=== PATIENT | female | born 1930 | race Caucasian/White ===

== ENCOUNTER 2022-06-23 07:17 | Inpatient (IN) | payer OTHER, BC ==
[2022-06-23] MEDS ORDERED: CEFTRIAXONE 1000 MG/VIAL ONE (08:03)
[2022-06-23] MEDS ORDERED: NA CHLORIDE 0.9% 1,000 ML ONE (08:03)
[2022-06-23 08:28] LABS: Absolute Lymphocytes (CBC) 1.4 K/uL (0.7-4.9); Lymphocytes % 26.6 % (15.3-44.8); MCV 84.7 fL (80-100); MPV 9.5 fL (7.6-11.3); RBC Red Blood Cell Count 3.78 M/uL (3.86-4.86)
[2022-06-23 08:36] LABS: Protime INR 1.18
[2022-06-23 08:48] LABS: Albumin 3.5 g/dL (3.4-5.0); Bilirubin Direct 0.2 mg/dL (0-0.2); Bilirubin Indirect, Calculated 0.4 mg/dL (0.2-0.8); Bilirubin Total 0.6 mg/dL (0.2-1.0); Magnesium 2.1 mg/dL (1.6-2.4); Potassium 3.3 mEq/L (3.5-5.1); Protein, Total 7.9 g/dL (6.4-8.2); Troponin High Sensitivity 14.3 pg/mL (<58.9)
--- NOTE | 2022-06-23 08:48 | RAD REPORT ---
EXAM DESCRIPTION: Lauren Single View06/23/2022 7:54 am CLINICAL HISTORY: Congestion;Dyspnea COMPARISON: No comparisons TECHNIQUE: Portable AP view of the chest. FINDINGS: Central interstitial prominence and vascular engorgement. No focal consolidation. No pneum othorax or effusion. Heart is not enlarged. Endovascular graft seen along the aortic arch with tortuo sity. Prominence of the aortic knuckle, of uncertain chronicity given absence of comparison exams. IMPRESSION: Prominence of the aortic knuckle, suggesting presence of an aneurysm, of uncertain chron icity in the absence of comparison exams. An aortic endovascular graft is present. Central congestive changes without evidence of focal airspace disease.
[2022-06-23] MEDS ORDERED: FUROSEMIDE 20 MG/ 2ML VIAL ONE ×2 (08:55→09:51)
[2022-06-23] MEDS ORDERED: NA CHLORIDE 0.9% 250 ML ONE (08:56)
[2022-06-23] MEDS ORDERED: AZITHROMYCIN 500 MG INJ IVPB ONE (08:56)
--- NOTE | 2022-06-23 09:15 | ER ---
Nurse's Notes [facility] Name: Latricia Chu Age: 89 yrs Sex: Female : 1930 Arrival Date: 06/23/2022 Time: 07:17 Bed 5 Private MD: Diagnosis: Dyspnea;Essential (primary) hypertension;Diastolic (congestive) heart failure;Hypoxemia;Hypokalemia Presentation: 06/23 07:38 Chief complaint: Persistent cough and SOB x 3 weeks, worse over last few days. hb Coronavirus screen: Client presents with at least one sign or symptom that may indicate coronavirus-19. Provider contacted for isolation considerations. Ebola Screen: No symptoms or risks identified at this time. Initial Sepsis Screen: Does the patient meet any 2 criteria? HR > 90 bpm. No. Patient's initial sepsis screen is negative. Does the patient have a suspected source of infection? No. Patient's initial sepsis screen is negative. Risk Assessment: Do you want to hurt yourself or someone else? Patient reports no desire to harm self or others. Onset of symptoms was June 09, 2022. 07:38 Method Of Arrival: Ambulatory 07:38 Acuity: FATMATA 3 Triage Assessment: 07:39 General: Appears in no apparent distress. Behavior is calm, cooperative. Pain: Denies hb pain. EENT: No signs and/or symptoms were reported regarding the EENT system. Neuro: Level of Consciousness is awake, alert, obeys commands, Oriented to person, place, time, situation. Cardiovascular: Patient's skin is warm and dry. Respiratory: Respiratory effort is even, mildly labored Respiratory pattern is regular, symmetrical. GI: No signs and/or symptoms were reported involving the gastrointestinal system. : No signs and/or symptoms were reported regarding the genitourinary system. Derm: Skin is pink, warm \T\ dry. Musculoskeletal: No signs and/or symptoms reported regarding the musculoskeletal system. Historical: - Allergies: 07:39 Codeine; hb - Home Meds: 08:00 metoprolol tartrate 25 mg Oral tablet 0.5 tabs 2 times per day [Active]; losartan 25 mg hb oral tablet once [Active]; potassium chloride 10 mEq Oral tablet, extended release daily [Active]; aspirin 81 mg Oral tablet, delayed release (enteric coated) daily [Active]; furosemide 40 mg Oral tablet daily [Active]; pravastatin 20 mg oral tablet every day at bedtime [Active]; colchicine 0.6 mg Oral capsule daily [Active]; - PMHx: 07:39 Congestive heart failure; hb 08:00 Gout; Hypertension; hb - Immunization history:: Adult Immunizations up to date. - Social history:: Smoking status: Patient denies any tobacco usage or history of. - Family history:: not pertinent. Screenin:41 [facility] ED Fall Risk Assessment (Adult) Score/Fall Risk Level 0 - 2 = Low Risk hb Oriented to surroundings, Maintained a safe environment, Educated pt \T\ family on fall prevention, incl call for assistance when getting out of bed. Abuse screen: Denies threats or abuse. Denies injuries from another. Nutritional screening: No deficits noted. Tuberculosis screening: No symptoms or risk factors identified. Assessment: 07:41 General: See triage assessment. hb 08:57 Reassessment: No changes from previously documented assessment. Patient and/or family hb updated on plan of care and expected duration. Pain level reassessed. Patient is alert, oriented x 3, equal unlabored respirations, skin warm/dry/pink. 09:09 Reassessment: received report from RN. Cindi mb9 09:50 Reassessment: pt actively vomiting. Dale GARCIA, notified. New orders at this time. hb 10:32 General:. Neuro: Level of Consciousness is awake, alert, obeys commands, Oriented to mb9 person, place, time, situation, Appropriate for age. Cardiovascular: Rhythm is sinus tachycardia. Respiratory: Airway is patent Respiratory effort is even, unlabored, Respiratory pattern is regular, symmetrical. GI: Reports nausea. Derm: Skin is pink, warm \T\ dry. Musculoskeletal: Range of motion: intact in all extremities. 12:24 Reassessment: No changes from previously documented assessment. Patient and/or family mb9 updated on plan of care and expected duration. Pain level reassessed. Patient is alert, oriented x 3, equal unlabored respirations, skin warm/dry/pink. 12:24 Reassessment: report called to LINDSAY Marino. mb9 Vital Signs: 07:38 BP 128 / 69; Pulse 100; Resp 18; Temp 98.6(O); Pulse Ox 94% on R/A; Weight 55.79 kg; hb Height 5 ft. 3 in. ; Pain 0/10; 08:46 BP 114 / 62; Pulse 98; Resp 18; Pulse Ox 94% on R/A; hb 09:20 Pulse 105; Resp 28; Pulse Ox 97% on R/A; mb9 09:59 BP 114 / 73; Pulse 110; Resp 24; Pulse Ox 95% on R/A; hb 07:38 Body Mass Index 21.79 (55.79 kg, 160.02 cm) hb 07:38 Pain Scale: Adult hb ED Course: 07:18 Patient arrived in ED. rg4 07:22 Kishore Hunter MD is Attending Physician. mark 07:39 Triage completed. hb 07:41 Arm band placed on. hb 07:41 Patient has correct armband on for positive identification. hb 07:41 Client placed on continuous cardiac and pulse oximetry monitoring. NIBP monitoring hb applied. 07:50 Placed in gown. Bed in low position. Call light in reach. Side rails up X2. Adult w/ mm9 patient. Warm blanket given. cardiac monitor on. Pulse ox on. NIBP on. 07:51 EKG done, by ED staff, reviewed by Kishore Hunter MD. mm9 07:56 XRAY Chest (1 view) In Process Unspecified. EDMS 08:08 Cindi Crystal, RN is Primary Nurse. hb 08:15 Initial lab(s) drawn, by wa, sent to lab. First set of blood cultures drawn by wa, mm9 COVID swab sent to lab. Flu and/or RSV swab sent to lab. 08:22 Flu Sent. mm9 08:22 Lactate w/ 2H reflex if indic. Sent. mm9 08:22 Blood Culture Adult (2) Sent. mm9 08:22 Basic Metabolic Panel Sent. mm9 08:22 CBC with Diff Sent. mm9 08:22 LFT's Sent. mm9 08:22 Magnesium Sent. mm9 08:22 NT PRO-BNP Sent. mm9 08:22 PT-INR Sent. mm9 08:22 Troponin HS Sent. mm9 08:22 Inserted saline lock: 22 gauge in right forearm, using aseptic technique. mm9 09:09 Primary Nurse role handed off by Cindi Crystal, RN mb9 09:09 Bernadette Tabor RN is Primary Nurse. mb9 09:13 Blue Chavez MD is Hospitalizing Provider. mark 10:00 No provider procedures requiring assistance completed. hb 11:22 CT Aorta for Dissection: min contrast please In Process Unspecified. EDMS 12:32 Patient admitted, IV remains in place. mb9 Administered Medications: 08:56 Discontinued: NS 0.9% IV 1000 ml IV at 75 ml/hr continuous hb 08:20 Drug: NS 0.9% IV 1000 ml Route: IV; Rate: 75 ml/hr; Site: right wrist; hb 08:56 Follow up: Response: No adverse reaction; IV Status: Order to discontinue infusion; IV hb Intake: 30ml 08:40 Drug: Rocephin IV 1 grams Route: IV; Rate: per protocol; Site: right wrist; hb 08:56 Drug: Zithromax IVPB 500 mg Route: IVPB; Infused Over: 1 hrs; Site: right wrist; hb 08:56 Drug: Furosemide IVP 20 mg Route: IVP; Site: right wrist; hb 09:20 Drug: Potassium PO Effervescent Tablet 25 mEq Route: PO; mb9 09:57 Follow up: Response: Vomiting increased hb 09:20 Drug: Metoprolol PO 25 mg Route: PO; mb9 11:02 Follow up: Response: No adverse reaction mb9 09:20 Drug: Losartan PO 25 mg Route: PO; mb9 11:02 Follow up: Response: No adverse reaction mb9 09:56 Drug: Furosemide IVP 20 mg Route: IVP; Site: right hand; hb 11:02 Follow up: Response: No adverse reaction mb9 09:57 Drug: Ondansetron IVP 4 mg Route: IVP; Site: right forearm; hb 11:02 Follow up: Response: No adverse reaction mb9 Medication: 07:41 VIS not applicable for this client. hb Intake: 08:56 IV: 30ml; Total: 30ml. hb Outcome: 09:14 Decision to Hospitalize by Provider. mark 12:32 Admitted to Med/surg accompanied by tech, via stretcher, room 217, with chart, Report mb9 called to LINDSAY Marino 12:32 Condition: stable 12:54 Patient left the ED. mb9 Signatures: Dispatcher [employer] Kishore Ceron MD MD cha Baxter, Heather, RN RN Miri Nieves 4 Tari Jones Mary Beth RN RN mb9 Corrections: (The following items were deleted from the chart) 08:35 08:22 SARS-COV-2 Antigen Rapid+I.LAB.ABELINOZ drawn and sent. mm9 EDMS
--- NOTE | 2022-06-23 09:15 | EDPHYS ---
Physician Documentation [facility] Name: Latricia Chu Age: 89 yrs Sex: Female : 1930 Arrival Date: 06/23/2022 Time: 07:17 Bed 5 Private MD: DANNI Physician Kishore Hunter HPI: 06/23 09:05 This 89 yrs old Female presents to ER via Ambulatory with complaints of mark Cough, Shortness Of Breath, Breathing Difficulty. 09:05 The patient or guardian reports cough, difficulty breathing. Onset: The mark symptoms/episode began/occurred 2 day(s) ago. Severity of symptoms: At their worst the symptoms were moderate, in the emergency department the symptoms are actually worse. Modifying factors: The symptoms are alleviated by nothing, the symptoms are aggravated by exertion. 09:07 The patient has shortness of breath with light activity. The patient's shortness of mark breath is aggravated by exertion, light activity. Associated signs and symptoms: Pertinent positives: non-productive cough. Severity of symptoms: At their worst the symptoms were mild moderate in the emergency department the symptoms are unchanged. The patient has experienced similar episodes in the past, several times. Historical: - Allergies: 07:39 Codeine; hb - Home Meds: 08:00 metoprolol tartrate 25 mg Oral tablet 0.5 tabs 2 times per day [Active]; losartan 25 mg hb oral tablet once [Active]; potassium chloride 10 mEq Oral tablet, extended release daily [Active]; aspirin 81 mg Oral tablet, delayed release (enteric coated) daily [Active]; furosemide 40 mg Oral tablet daily [Active]; pravastatin 20 mg oral tablet every day at bedtime [Active]; colchicine 0.6 mg Oral capsule daily [Active]; - PMHx: 07:39 Congestive heart failure; hb 08:00 Gout; Hypertension; hb - Immunization history:: Adult Immunizations up to date. - Social history:: Smoking status: Patient denies any tobacco usage or history of. - Family history:: not pertinent. ROS: 09:08 Constitutional: Negative for fever, chills, and weight loss, Eyes: Negative for injury, mark pain, redness, and discharge, ENT: Negative for injury, pain, and discharge, Neck: Negative for injury, pain, and swelling, Cardiovascular: Negative for chest pain, palpitations, and edema, Abdomen/GI: Negative for abdominal pain, nausea, vomiting, diarrhea, and constipation, Back: Negative for injury and pain, : Negative for injury, bleeding, discharge, and swelling, MS/Extremity: Negative for injury and deformity, Skin: Negative for injury, rash, and discoloration, Neuro: Negative for headache, weakness, numbness, tingling, and seizure, Psych: Negative for depression, anxiety, suicide ideation, homicidal ideation, and hallucinations, Allergy/Immunology: Negative for hives, rash, and allergies, Endocrine: Negative for neck swelling, polydipsia, polyuria, polyphagia, and marked weight changes, Hematologic/Lymphatic: Negative for swollen nodes, abnormal bleeding, and unusual bruising. 09:08 Respiratory: Positive for cough, "sounds productive", dyspnea on exertion, shortness of breath, at rest. Exam: 09:08 Constitutional: This is a well developed, well nourished patient who is awake, alert, mark and in no acute distress. Head/Face: Normocephalic, atraumatic. Eyes: Pupils equal round and reactive to light, extra-ocular motions intact. Lids and lashes normal. Conjunctiva and sclera are non-icteric and not injected. Cornea within normal limits. Periorbital areas with no swelling, redness, or edema. ENT: Nares patent. No nasal discharge, no septal abnormalities noted. Tympanic membranes are normal and external auditory canals are clear. Oropharynx with no redness, swelling, or masses, exudates, or evidence of obstruction, uvula midline. Mucous membranes moist. Neck: Trachea midline, no thyromegaly or masses palpated, and no cervical lymphadenopathy. Supple, full range of motion without nuchal rigidity, or vertebral point tenderness. No Meningismus. Chest/axilla: Normal chest wall appearance and motion. Nontender with no deformity. No lesions are appreciated. Abdomen/GI: Soft, non-tender, with normal bowel sounds. No distension or tympany. No guarding or rebound. No evidence of tenderness throughout. Back: No spinal tenderness. No costovertebral tenderness. Full range of motion. Female : Normal external genitalia. Skin: Warm, dry with normal turgor. Normal color with no rashes, no lesions, and no evidence of cellulitis. MS/ Extremity: Pulses equal, no cyanosis. Neurovascular intact. Full, normal range of motion. Neuro: Awake and alert, GCS 15, oriented to person, place, time, and situation. Cranial nerves II-XII grossly intact. Motor strength 5/5 in all extremities. Sensory grossly intact. Cerebellar exam normal. Normal gait. Psych: Awake, alert, with orientation to person, place and time. Behavior, mood, and affect are within normal limits. 09:08 ECG was reviewed by the Attending Physician. Vital Signs: 07:38 BP 128 / 69; Pulse 100; Resp 18; Temp 98.6(O); Pulse Ox 94% on R/A; Weight 55.79 kg; hb Height 5 ft. 3 in. ; Pain 0/10; 08:46 BP 114 / 62; Pulse 98; Resp 18; Pulse Ox 94% on R/A; hb 09:20 Pulse 105; Resp 28; Pulse Ox 97% on R/A; mb9 09:59 BP 114 / 73; Pulse 110; Resp 24; Pulse Ox 95% on R/A; hb 07:38 Body Mass Index 21.79 (55.79 kg, 160.02 cm) hb 07:38 Pain Scale: Adult hb MDM: 07:32 Patient medically screened. mark 09:10 Differential diagnosis: Bronchitis CHF exacerbation, Chronic Obstructive Pulmonary mark Disease pneumonia, pulmonary edema, reactive airway disease, Sepsis. Antibiotic administration: Rocephin and Zithromax given. Differential Diagnosis: Obstructed Airway Bronchitis Influenza Upper Respiratory Infection Pharyngitis Asthma Exacerbation Viral Syndrome Pneumonia. Immunization status: Pneumococcal vaccine: within last 5 years. Influenza vaccine: within last 5 years. Data reviewed: vital signs, nurses notes, lab test result(s), EKG, radiologic studies, plain films. Consideration of Admission/Observation Escalation of care including admission/observation considered. I considered the following discharge prescriptions or medication management in the emergency department Medications were administered in the Emergency Department. See MAR. Test considered but Not performed: CT: no ct chest. Historians other than the Patient: Daughter/Son: son, well informed. Care significantly affected by the following chronic conditions: Hypertension, Congestive Heart Failure. Counseling: I had a detailed discussion with the patient and/or guardian regarding: the historical points, exam findings, and any diagnostic results supporting the discharge/admit diagnosis, the presence of at least one elevated blood pressure reading (>120/80) during this emergency department visit, lab results, radiology results, the need for further work-up and treatment in the hospital. 06/23 07:24 Order name: Basic Metabolic Panel; Complete Time: 09:03 [facility] 06/23 07:24 Order name: CBC with Diff; Complete Time: 09:03 [facility] 06/23 07:24 Order name: LFT's; Complete Time: 09:03 [facility] 06/23 07:24 Order name: Magnesium; Complete Time: 09:03 [facility] 06/23 07:24 Order name: NT PRO-BNP; Complete Time: 09:03 [facility] 06/23 07:24 Order name: PT-INR; Complete Time: 09:03 [facility] 06/23 07:24 Order name: Troponin HS; Complete Time: 09:03 [facility] 06/23 07:24 Order name: Blood Culture Adult (2) [facility] 06/23 07:24 Order name: Lactate w/ 2H reflex if indic.; Complete Time: 09:03 [facility] 06/23 07:24 Order name: Flu; Complete Time: 09:03 [facility] 06/23 07:24 Order name: Urinalysis w/ reflexes [facility] 06/23 08:35 Order name: SARS-COV-2 RT PCR; Complete Time: 11:32 [facility]AL 06/23 11:29 Order name: CBC with Automated Diff [facility] 06/23 11:29 Order name: CBC with Automated Diff [facility] 06/23 11:30 Order name: Comprehensive Metabolic Panel [facility] 06/23 11:30 Order name: Comprehensive Metabolic Panel [facility] 06/23 11:30 Order name: Lipid Profile [facility] 06/23 11:30 Order name: Lipid Profile [facility] 06/23 11:30 Order name: Magnesium [facility] 06/23 11:30 Order name: Magnesium [facility] 06/23 11:30 Order name: NT PRO-BNP [facility] 06/23 11:30 Order name: NT PRO-BNP [facility] 06/23 11:30 Order name: Troponin High Sensitivity [facility] 06/23 11:30 Order name: Troponin High Sensitivity [facility] 06/23 11:30 Order name: Troponin High Sensitivity; Complete Time: 12:31 [facility] 06/23 12:04 Order name: Glucose, Ancillary Testing; Complete Time: 12:31 [facility] 06/23 07:24 Order name: XRAY Chest (1 view); Complete Time: 09:03 [facility] 06/23 09:04 Order name: Echo w/ Doppler [facility] 06/23 09:44 Order name: CT Aorta for Dissection: min contrast please; Complete Time: 12:31 [facility] 06/23 11:29 Order name: Echo with Doppler [facility] 06/23 07:24 Order name: EKG; Complete Time: 07:25 [facility] 06/23 11:29 Order name: Low Sodium [facility]AL 06/23 07:24 Order name: Cardiac monitoring; Complete Time: 07:52 [facility] 06/23 07:24 Order name: EKG - Nurse/Tech; Complete Time: 07:52 [facility] 06/23 07:24 Order name: IV Saline Lock; Complete Time: 08:22 [facility] 06/23 07:24 Order name: Labs collected and sent; Complete Time: 08:22 [facility] 06/23 07:24 Order name: O2 Per Protocol; Complete Time: 07:52 [facility] 06/23 07:24 Order name: O2 Sat Monitoring; Complete Time: 07:52 [facility] EC:08 Rate is 102 beats/min. Rhythm is regular. QRS [place] is Normal. [place] interval is normal. [facility] QRS interval is normal. QT interval is normal. No Q waves. T waves are Normal. No ST changes noted. Clinical impression: Abnormal EKG without significant change and No evidence of ischemia. Interpreted by me. Reviewed by me. Administered Medications: 08:56 Discontinued: NS 0.9% IV 1000 ml IV at 75 ml/hr continuous hb 08:20 Drug: NS 0.9% IV 1000 ml Route: IV; Rate: 75 ml/hr; Site: right wrist; hb 08:56 Follow up: Response: No adverse reaction; IV Status: Order to discontinue infusion; IV hb Intake: 30ml 08:40 Drug: Rocephin IV 1 grams Route: IV; Rate: per protocol; Site: right wrist; hb 08:56 Drug: Zithromax IVPB 500 mg Route: IVPB; Infused Over: 1 hrs; Site: right wrist; hb 08:56 Drug: Furosemide IVP 20 mg Route: IVP; Site: right wrist; hb 09:20 Drug: Potassium PO Effervescent Tablet 25 mEq Route: PO; mb9 09:57 Follow up: Response: Vomiting increased hb 09:20 Drug: Metoprolol PO 25 mg Route: PO; mb9 11:02 Follow up: Response: No adverse reaction mb9 09:20 Drug: Losartan PO 25 mg Route: PO; mb9 11:02 Follow up: Response: No adverse reaction mb9 09:56 Drug: Furosemide IVP 20 mg Route: IVP; Site: right hand; hb 11:02 Follow up: Response: No adverse reaction mb9 09:57 Drug: Ondansetron IVP 4 mg Route: IVP; Site: right forearm; hb 11:02 Follow up: Response: No adverse reaction mb9 Disposition Summary: 06/23/22 09:14 Hospitalization Ordered Hospitalization Status: Inpatient Admission mark Provider: Blue Chavez cha Location: Telemetry/MedSurg (Inpatient) mark Condition: Fair mark Problem: new mark Symptoms: have improved mark Bed/Room Type: Standard mark Room Assignment: 217(06/23/22 12:07) eb Diagnosis - Dyspnea mark - Essential (primary) hypertension mark - Diastolic (congestive) heart failure mark - Hypoxemia mark - Hypokalemia mark Forms: - Medication Reconciliation Form mark - SBAR form mark Signatures: Dispatcher [employer] EDKishore Abdullahi MD MD cha Baxter, Heather, RN RN Sherlyn Purdy Mary Beth RN RN mb9 Corrections: (The following items were deleted from the chart) 08:35 07:25 SARS-COV-2 Antigen Rapid+I.LAB.BRZ ordered. [facility] EDMS 12:07 09:14 mark braxton
[2022-06-23] MEDS ORDERED: POTASSIUM 25 MEQ EFFERV TAB ONE (09:20)
[2022-06-23] MEDS ORDERED: METOPROLOL TAR 25 MG TAB ONE (09:20)
[2022-06-23] MEDS ORDERED: LOSARTAN POTASSIUM 50 MG TABLET ONE (09:20)
[2022-06-23] MEDS ORDERED: ONDANSETRON 4 MG/2 ML VIAL ONE (09:51)
[2022-06-23] MEDS ORDERED: ONDANSETRON 4 MG/2 ML VIAL IV PRN (11:25)
--- NOTE | 2022-06-23 11:53 | RAD REPORT ---
EXAM DESCRIPTION: CT - Angio Aorta For Dissection - 06/23/2022 11:20 am CLINICAL HISTORY: DISSECTION COMPARISON: Chest Single View dated 06/23/2022 TECHNIQUE: Dynamically enhanced 3 mm thick images of the chest, abdomen, and upper pelvis were obtai lev during administration of approximately 75mL Isovue 370 IV contrast. Sagittal and coronal reconstr uctions as well as maximal intensity projection reconstruction were generated and reviewed per an [facility] tic angiography protocol. All CT scans are performed using dose optimization technique as appropriate and may include automated exposure control or mA/KV adjustment according to patient size. FINDINGS: Aorta demonstrates an endovascular graft extending from the proximal arch through the prox imal descending aorta. A saccular aneurysm of the mid aspect of the arch is noted, with aneurysm sac measuring 5.6 x 4.9 centimeter in greatest coronal dimensions. Ascending thoracic aorta is normal in caliber measuring 3.5 centimeter. Mild ectasia of the proximal descending aorta just distal to the gr aft, measuring 3.2 centimeter in caliber. Mild fusiform ectasia along the segment of the most distal thoracic and proximal abdominal aorta, measuring up to 3.1 centimeter in caliber, as well as the dist al abdominal aorta, measuring 2.4 centimeter in caliber. Moderate tortuosity. No evidence of dissecti on. Major aortic branches are patent. Reconstruction images show no other significant findings. Pulmonary arteries are unremarkable, although evaluation is limited given the timing of contrast in t he pulmonary circulation. No mass or focal infiltrate in the lung parenchyma. Scattered ground-glass opacities and reticular de nsities, with some confluent opacification in the right more than left central lung. No pleural thick ening, pleural effusion or pneumothorax. No abnormal mediastinal or hilar mass or lymphadenopathy seen. No chest wall mass or abnormal axillar y lymphadenopathy. Celiac, SMA and renal arteries show no suspicious findings. Solid abdominal viscera and bowel show no significant findings. No mass or abnormal lymphadenopathy. Status post cholecystectomy. Exophytic cy st measuring 2.4 centimeter arising from the superior pole of the right kidney. 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 No evidence of complications. Tortuosity and focal ectasia of the descending thoracic and abdominal aorta as above. Major branches are patent. Scattered ground-glass and reticular opacities throughout the lungs with some confluent opacification centrally. Findings may reflect a degree of edema or interstitial airspace disease.
[2022-06-23 13:01] VITALS: BMI 21.0
[2022-06-23 14:12] LABS: Specific Gravity 1.023 (1.005-1.030); Urine Bilirubin NEGATIVE (Negative); Urine Blood Negative (Negative); Urine Clarity Clear (Clear); Urine Color Colorless (Yellow); Urine Glucose NEGATIVE (Negative); Urine Protein NEGATIVE (Negative); Urine Urobilinogen Normal (Normal)
[2022-06-23] MEDS: ENOXAPARIN 40 MG/0.4 ML SQ SCH (17:32)
[2022-06-23] MEDS: FUROSEMIDE 20 MG/ 2ML VIAL IV SCH (17:32)
[2022-06-24 03:08] LABS: Absolute Lymphocytes (CBC) 1.1 K/uL (0.7-4.9); Hematocrit 30.8 % (36.0-45.0); Lymphocytes % 17.9 % (15.3-44.8); MCV 84.5 fL (80-100); MPV 9.6 fL (7.6-11.3); RBC Red Blood Cell Count 3.64 M/uL (3.86-4.86)
[2022-06-24 03:29] LABS: Albumin 3.1 g/dL (3.4-5.0); Bilirubin Total 0.5 mg/dL (0.2-1.0); Magnesium 2.1 mg/dL (1.6-2.4); Potassium 3.7 mEq/L (3.5-5.1); Protein, Total 7.2 g/dL (6.4-8.2); Troponin High Sensitivity 19.6 pg/mL (<58.9)
[2022-06-24] MEDS ORDERED: POTASSIUM CL SA 10 MEQ TAB PO ONE (09:00)
[2022-06-24] MEDS: ASPIRIN EC 81 MG TAB PO SCH (09:38)
[2022-06-24] MEDS: FUROSEMIDE 20 MG/ 2ML VIAL IV SCH (09:39)
[2022-06-24] MEDS: ENOXAPARIN 40 MG/0.4 ML SQ SCH (09:39)
[2022-06-24] MEDS ORDERED: ALBUMIN HUMAN 25% 50 ML IV ONE (16:30)
[2022-06-24] MEDS ORDERED: DIGOXIN 0.25 MG/ML AMP IV ONE (17:24)
[2022-06-24] MEDS: METOPROLOL TAR 25 MG TAB PO SCH (20:47)
[2022-06-24] MEDS ORDERED: BUSPIRONE HCL 5 MG TABLET PO SCH (21:00)
[2022-06-25] MEDS: METHYLPREDNISOLONE 40 MG INJ IV SCH ×3 (00:35→11:40)
[2022-06-25 06:25] LABS: Absolute Lymphocytes (CBC) 0.7 K/uL (0.7-4.9); Hematocrit 31.6 % (36.0-45.0); Lymphocytes % 13.1 % (15.3-44.8); MCV 84.8 fL (80-100); MPV 9.8 fL (7.6-11.3); RBC Red Blood Cell Count 3.72 M/uL (3.86-4.86)
[2022-06-25 07:04] LABS: Albumin 3.3 g/dL (3.4-5.0); Bilirubin Total 0.5 mg/dL (0.2-1.0); Magnesium 2.2 mg/dL (1.6-2.4); Potassium 4.2 mEq/L (3.5-5.1); Thyroid Stimulating Hormone 0.593 uIU/mL (0.358-3.740)
[2022-06-25] MEDS: ASPIRIN EC 81 MG TAB PO SCH (08:53)
[2022-06-25] MEDS: ENOXAPARIN 40 MG/0.4 ML SQ SCH (08:54)
[2022-06-25] MEDS: METOPROLOL TAR 25 MG TAB PO SCH (08:54)
[2022-06-25] MEDS ORDERED: FUROSEMIDE 40 MG TABLET PO SCH (09:00)
[2022-06-25] MEDS ORDERED: POTASSIUM CL SA 10 MEQ TAB PO SCH (09:00)
[2022-06-25 09:09] VITALS: O2SAT 98
--- NOTE | 2022-06-25 09:19 | RAD REPORT ---
EXAM DESCRIPTION: RAD - Chest Single View - 06/25/2022 5:02 am CLINICAL HISTORY: pneumonia Chest pain. COMPARISON: Chest Single View dated 06/23/2022 FINDINGS: Portable technique limits examination quality. Bilateral pulmonary opacities are slightly worse since comparative study probably mild pulmonary juan pablo a or infection. The heart size is mildly prominent. Aortic stent material. IMPRESSION: Mild worsening in lung aeration since comparative study.
[2022-06-25] MEDS ORDERED: CYANOCOBALAMIN 1000MCG/ML INJ IM ONE (09:58)
[2022-06-25 16:31] VITALS: BP 124/61; TEMP 97.2
--- NOTE | 2022-06-25 17:36 | EKG ---
Test Date: 2022-06-23 Test Time: 07:44:14 Section [employer] Activities Clerk: HOLLY MEASUREMENT RESULTS: Intervals: Rate: 102 VT: 146 QRSD: 138 QT: 400 QTc: 521 [place]: P: 46 VT: 146 QRS: -35 T: 102 INTERPRETIVE STATEMENTS: Sinus tachycardia with occasional premature ventricular complexes Left axis deviation Left bundle branch block Abnormal ECG Compared to ECG 05/06/2000 16:03:00 Ventricular premature complex(es) now present Left-axis deviation now present Left bundle-branch block now present Sinus bradycardia no longer present Left ventricular hypertrophy no longer present Electronically Signed On 06-25-22 17:34:19 CDT by Salas Javier
[2022-06-26] MEDS ORDERED: SOD FERRIC GLUC COMPLX/SUCROSE 125 MG in NA CHLORIDE 0.9% 100 ML IV ONE (09:59)
--- NOTE | 2022-06-26 10:37 | ECHO ---
HEIGHT: 5 ft 2 in WEIGHT: 115 lb 0 oz DATE OF STUDY: 06/23/[address]: Kishore Hunter MD 2-DIMENSIONAL: YES M.MODE: YES DOPPLER: YES COLOR FLOW: YES TDS: NO PORTABLE: YES DEFINITY: NO BUBBLE STUDY: NO DIAGNOSIS: CONGESTIVE HEART FAILURE CARDIAC HISTORY: CATHERIZATION:YES SURGERY: NO PROSTHETIC VALVE: NO PACEMAKER: NO MEASUREMENTS (cm) DIASTOLIC (NORMALS) SYSTOLIC (NORMALS) IVSd 0.9 (0.6-1.2) LA Diam 2.3 (1.9-4.0) LVEF 30-35% LVIDd 5.9 (3.5-5.7) LVIDs 4.8 (2.0-3.5) %FS 19% LVPWd 1.0 (0.6-1.2) Ao Diam 2.6 (2.0-3.7) 2 DIMENSIONAL ASSESSMENT: RIGHT ATRIUM: NOT SEEN WELL LEFT ATRIUM: NORMAL RIGHT VENTRICLE: NOT SEEN WELL LEFT VENTRICLE: DEPRESSED EF TRICUSPID VALVE: MILD TR MITRAL VALVE: MODERATE MR PULMONIC VALVE: MILD PI AORTIC VALVE: NORMAL PERICARDIAL EFFUSION: NONE AORTIC ROOT: NORMAL LEFT VENTRICULAR WALL MOTION: UNABLE TO EVALUATE DUE TO POOR WINDOWS. DOPPLER/COLOR FLOW: SEE BELOW. COMMENTS: 1. POOR WINDOWS. 2. OVERALL LEFT VENTRICULAR EJECTION FRACTION APPEARS MODERATELY DEPRESSED 30-35%. 3. MODERATE MITRAL REGURGITATION. 4. MILD TRICUSPID AND PULMONARY REGURGITATION. TECHNOLOGIST: Cesar BATRES
--- NOTE | 2022-07-27 00:47 | P.HP ---
Certification for Inpatient Patient admitted to: Inpatient With expected LOS: >2 Midnights Patient will require the following post-hospital care: None Practitioner: I am a practitioner with admitting privileges, knowledge of patient current condition, hospital course, and medical plan of care. Services: Services provided to patient in accordance with Admission requirements found in Title 42 Section 412.3 of the Code of Federal Regulations Patient History Date of Service: 06/23/22 Reason for admission: SHORTNESS OF BREATH History of Present Illness: PATIENT IS AN 89-YEAR-OLD FEMALE CAME TO THE HOSPITAL WITH SHORTNESS OF BREATH WITH PERSISTENT COUGHING. IN THE EMERGENCY ROOM SHE WAS WORKED UP AND SHE WAS FOUND HAVE PULMONARY EDEMA. SHE HAD CT AORTIC DISSECTION WHICH WAS UNREMARKABLE EXCEPT FOR SACCULAR ANEURYSM. BUT PATIENT HAD A PRIOR STENT PLACED IN THIS AREA. PATIENT WAS ADMITTED TO THE HOSPITAL FOR ACUTE CHF EXACERBATION. Allergies grape Allergy (Verified 06/23/22 18:53) Anaphylaxis peanut Allergy (Verified 06/23/22 18:53) Anaphylaxis codeine Adverse Reaction (Mild, Verified 06/23/22 13:09) hallucinations alprazolam [From Xanax] Adverse Reaction (Verified 06/23/22 13:09) hallucinations zolpidem [From Ambien] Adverse Reaction (Verified 06/23/22 13:09) hallucinations Home Medications: Aspirin [Aspirin EC 81 MG] 1 tab PO DAILY 06/23/22 Colchicine 1 cap PO DAILY 06/23/22 Furosemide 1 tab PO DAILY 06/23/22 Losartan Potassium 1 tab PO DAILY 06/23/22 Metoprolol Tartrate 0.5 tab PO BID 06/23/22 Potassium Chloride 1 cap PO DAILY 06/23/22 Pravastatin [Pravachol*] 20 mg PO BEDTIME 06/23/22 Azithromycin Tab [Zithromax*] 250 mg PO ZPAK #1 maggi 06/25/22 Buspirone HCl [Buspar*] 5 mg PO BEDTIME #30 tab 06/25/22 Cefdinir [Cefdinir*] 300 mg PO BID #14 cap 06/25/22 Cyanocobalamin/Cobamamide [Vitamin B-12 5,000 Mcg Tab Sl] 1 each SL DAILY #30 tab 06/25/22 Ferrous Fumarate [Hemocyte] 324 mg PO BID #60 tab 06/25/22 predniSONE [Deltasone] 20 mg PO BID #11 tab 06/25/22 - Past Medical/Surgical History Has patient received pneumonia vaccine in the past: Yes Diabetic: Yes Past Medical History: Reviewed- Non-Contributory -: HTN -: NIDDM -: CHF -: AORTIC ANEURYSM -: hysterectomy -: cholecysectomy -: mouth s/x -: AORTIC STENT PLACEMENT - Family History Father Family History: Reviewed- Non-Contributory - Social History Smoking Status: Never smoker Alcohol use: Yes CD- Drugs: No Caffeine use: Yes Place of Residence: Home Review of Systems 10-point ROS is otherwise unremarkable Physical Examination - Vital Signs Temperature: 97.2 F Blood Pressure: 124/61 Pulse: 66 Respirations: 16 Pulse Ox (%): 98 - Physical Exam General: Alert, In no apparent distress, Oriented x3 HEENT: Atraumatic, PERRLA, Mucous membr. moist/pink, EOMI, Sclerae nonicteric Neck: Supple, 2+ carotid pulse no bruit, No LAD, Without JVD or thyroid abnormality Respiratory: Diminished, Crackles/rales Cardiovascular: Regular rate/rhythm, Normal S1 S2, No murmurs Gastrointestinal: Normal bowel sounds, Soft and benign, Non-distended, No tenderness Musculoskeletal: No clubbing, No swelling, No tenderness Integumentary: No rashes Neurological: Normal gait, Normal speech, Normal strength at 5/5 x4 extr, Normal tone, Normal affect Lymphatics: No axilla or inguinal lymphadenopathy Assessment & Plan - Problems (Diagnosis) (1) Acute CHF Status: Acute (2) History of aortic aneurysm Status: Acute - Plan 1. ECHOCARDIOGRAM 2. WE WILL START PATIENT ON AN ANITA INHIBITOR OR AN ARB 3. WE WILL START PATIENT ON A BETA GREGG 4. CARDIOLOGY CONSULTATION 5. AGGRESSIVE DIURESIS 6. STRICT I'S AND O'S 7. REPEAT CXR 8. DAILY WEIGHTS 9. EDUCATION REGARDING DIET AND TREATMENT OF CONGESTIVE HEART FAILURE Discharge Plan: Home Plan to discharge in: Greater than 2 days - Advance Directives Does patient have a Living Will: No Does patient have a Durable POA for Healthcare: No - Code Status/Comfort Care Code Status Assessed: Yes Code Status: Full Code Critical Care: No Time Spent Managing PTS Care (In Minutes): 45
--- NOTE | 2022-07-27 00:52 | P.PN ---
Subjective Date of Service: 06/24/22 Subjective: No new changes, No C/O voiced, Improving Review of Systems 10-point ROS is otherwise unremarkable Physical Examination - Vital Signs Temperature: 97.2 F Blood Pressure: 124/61 Pulse: 66 Respirations: 16 Pulse Ox (%): 98 - Physical Exam General: Alert, In no apparent distress, Oriented x3 Respiratory: Diminished, Crackles/rales Cardiovascular: Regular rate/rhythm, Normal S1 S2 Gastrointestinal: Normal bowel sounds, Soft and benign, Non-distended, No tenderness Musculoskeletal: No clubbing, No swelling, No tenderness Neurological: Sensation intact, Cranial nerves 3-12 intact - Studies Medications List Reviewed: Yes Assessment & Plan - Problems (Diagnosis) (1) Acute CHF Status: Acute (2) History of aortic aneurysm Status: Acute (3) Mitral regurgitation Status: Acute - Plan CONTINUE WITH PLAN OF CARE MENTIONED BELOW: 1. ECHOCARDIOGRAM WITH AN EJECTION FRACTION OF 30%; PATIENT WITH MODERATE MITRAL REGURGITATION 2. CONTINUE WITH LOSARTAN 3. CONTINUE WITH LOW-DOSE BETA-GERGG THERAPY 4. CARDIOLOGY CONSULTATION OUTPATIENT 5. AGGRESSIVE DIURESIS 6. STRICT I'S AND O'S 7. REPEAT CXR 8. DAILY WEIGHTS 9. EDUCATION REGARDING DIET AND TREATMENT OF CONGESTIVE HEART FAILURE Discharge Plan: Home Plan to discharge in: 24 Hours - Advance Directives Does patient have a Living Will: No Does patient have a Durable POA for Healthcare: No - Code Status/Comfort Care Code Status Assessed: Yes Code Status: Full Code Critical Care: No Time Spent Managing PTS Care (In Minutes): 35
--- NOTE | 2022-07-27 00:53 | P.DS ---
Discharge Date: 06/25/22 Disposition: ROUTINE DISCHARGE Discharge Condition: GOOD Reason for Admission: SHORTNESS OF BREATH - Problems (1) Acute CHF Status: Acute (2) History of aortic aneurysm Status: Acute (3) Mitral regurgitation Status: Acute Brief History of Present Illness: PATIENT IS AN 89-YEAR-OLD FEMALE CAME TO THE HOSPITAL WITH SHORTNESS OF BREATH WITH PERSISTENT COUGHING. IN THE EMERGENCY ROOM SHE WAS WORKED UP AND SHE WAS FOUND HAVE PULMONARY EDEMA. SHE HAD CT AORTIC DISSECTION WHICH WAS UNREMARKABLE EXCEPT FOR SACCULAR ANEURYSM. BUT PATIENT HAD A PRIOR STENT PLACED IN THIS AREA. PATIENT WAS ADMITTED TO THE HOSPITAL FOR ACUTE CHF EXACERBATION. Hospital Course: PATIENT HAS DONE WELL DURING HOSPITAL STAY. PATIENT'S CLINICAL SYMPTOMS ARE IMPROVING. AT THIS TIME, PATIENT IS STABLE FOR DISCHARGE WITH OUTPATIENT FOLLOW-UP. Vital Signs/Physical Exam: Temp Pulse Resp BP Pulse Ox 97.2 F 66 16 124/61 98 07/27/22 00:52 07/27/22 00:52 07/27/22 00:52 07/27/22 00:52 07/27/22 00:52 General: Alert, In no apparent distress, Oriented x3 Laboratory Data at Discharge: WBC 5.00 thou/uL (4.3-10.9) 06/25/22 06:06 Hgb 10.3 g/dL (12.0-15.0) L 06/25/22 06:06 Hct 31.6 % (36.0-45.0) L 06/25/22 06:06 Plt Count 155 thou/uL (152-406) 06/25/22 06:06 PT 13.0 SECONDS (9.5-12.5) H 06/23/22 08:15 INR 1.18 06/23/22 08:15 APTT Cancelled 06/24/22 19:45 Sodium 134 mEq/L (136-145) L 06/25/22 06:06 Potassium 4.2 mEq/L (3.5-5.1) D 06/25/22 06:06 BUN 28 mg/dL (7-18) H 06/25/22 06:06 Creatinine 1.09 mg/dL (0.55-1.02) H 06/25/22 06:06 Glucose 278 mg/dL (74-106) H 06/25/22 06:06 Magnesium 2.2 mg/dL (1.6-2.4) 06/25/22 06:06 Total Bilirubin 0.5 mg/dL (0.2-1.0) 06/25/22 06:06 AST 17 U/L (15-37) 06/25/22 06:06 ALT 14 U/L (13-56) 06/25/22 06:06 Alkaline Phosphatase 90 U/L (45-117) 06/25/22 06:06 Triglycerides 105 mg/dL (<150) 06/24/22 02:49 Cholesterol 116 mg/dL (<200) 06/24/22 02:49 HDL Cholesterol 26 mg/dL (40-60) L 06/24/22 02:49 Cholesterol/HDL Ratio 4.46 06/24/22 02:49 Home Medications: Aspirin [Aspirin EC 81 MG] 1 tab PO DAILY 06/23/22 Colchicine 1 cap PO DAILY 06/23/22 Furosemide 1 tab PO DAILY 06/23/22 Losartan Potassium 1 tab PO DAILY 06/23/22 Metoprolol Tartrate 0.5 tab PO BID 06/23/22 Potassium Chloride 1 cap PO DAILY 06/23/22 Pravastatin [Pravachol*] 20 mg PO BEDTIME 06/23/22 Azithromycin Tab [Zithromax*] 250 mg PO ZPAK #1 maggi 06/25/22 Buspirone HCl [Buspar*] 5 mg PO BEDTIME #30 tab 06/25/22 Cefdinir [Cefdinir*] 300 mg PO BID #14 cap 06/25/22 Cyanocobalamin/Cobamamide [Vitamin B-12 5,000 Mcg Tab Sl] 1 each SL DAILY #30 tab 06/25/22 Ferrous Fumarate [Hemocyte] 324 mg PO BID #60 tab 06/25/22 predniSONE [Deltasone] 20 mg PO BID #11 tab 06/25/22 New Medications: Buspirone HCl [Buspar*] 5 mg PO BEDTIME #30 tab Cefdinir [Cefdinir*] 300 mg PO BID #14 cap Ferrous Fumarate [Hemocyte] 324 mg PO BID #60 tab predniSONE [Deltasone] 20 mg PO BID #11 tab Cyanocobalamin/Cobamamide [Vitamin B-12 5,000 Mcg Tab Sl] 1 each SL DAILY #30 tab Azithromycin Tab [Zithromax*] 250 mg PO ZPAK #1 maggi Physician Discharge Instructions: OK TO DC IV AND DC HOME FOLLOW-UP WITH PRIMARY CARE PROVIDER IN 1-2 WEEKS FOLLOW-UP WITH CARDIOLOGY IN 1-2 WEEKS RETURN TO THE ER IF symptoms worsens CALL DR. VILLAVICENCIO AT [phone] IF ANY QUESTIONS REGARDING HOSPITAL STAY. PLEASE CALL THE FLOOR AT [phone] IF ANY MEDICATION OR NURSING QUESTIONS. Follow up with a [facility] of your choice: SABAS GARCIA, [address] [address] ALAINA GARCIA, [address] [address] Diet: AHA Activity: Fall precautions Followup: NONE,NONE [Primary Care Provider] - Time spent managing pt's care (in minutes): 35
== END 2022-06-25 18:47 | disposition home or self-care (01) | DRG 291 ==
LOC: ER 07:17 → ERHOLD 11:26 → 2ND 12:22
PROVIDERS: ADMIT Hospitalist; ATTEND Hospitalist
DX: I11.0 Hypertensive heart disease with heart failure (principal); I50.33 Acute on chronic diastolic (congestive) heart failure; M10.9 Gout, unspecified; E87.6 Hypokalemia; I34.0 Nonrheumatic mitral (valve) insufficiency; Z88.5 Allergy status to narcotic agent; Z79.52 Long term (current) use of systemic steroids; Z90.49 Acquired absence of other specified parts of digestive tract; Z79.82 Long term (current) use of aspirin; Z79.899 Other long term (current) drug therapy; Z90.710 Acquired absence of both cervix and uterus; Z95.818 Presence of other cardiac implants and grafts; Z20.822 Contact with and (suspected) exposure to COVID-19
CPT/HCPCS: 36415; 71045; 71275; 74175; 80048; 80053; 80061; 80076; 81003; 82533; 82607; 82947; 83540; 83605; 83735; 83880; 84439; 84443; 84484; 85025; 85610; 87040; 87804; 93005; 93306; 99285; J0696; J1160; J1650; J1940; J2405; J2920; J3420; J7030; J7050; P9047; Q9967; U0003